=== PATIENT | female | born 1935 | race Caucasian/White ===

== ENCOUNTER 2016-12-13 20:47 | Inpatient (IN) | payer OTHER ==
[~2016-12-13] VITALS: Ht 167.6 cm; Wt 63.5 kg
[~2016-12-13 20:47] MED LIST: GLUXR500 PO; LISI10TA5 PO; VITD2000 PO
[2016-12-13 20:52] VITALS: BP_SYST 142
[2016-12-13 21:33] LABS: BASOPHILS % (AUTO) 0.5 % (0.0-2.0); EOSINOPHILS # (AUTO) 0.1 K/uL (0.0-0.4); EOSINOPHILS % (AUTO) 1.5 % (0.0-4.0); HEMATOCRIT 38.1 % (36-48); HEMOGLOBIN 12.8 g/dL (12.0-16.0); LYMPHOCYTES # (AUTO) 1.6 K/uL (1.0-5.5); LYMPHOCYTES % (AUTO) 17.3 % (20.5-51.5); MEAN CORPUSCULAR HEMOGLOBIN 32 pg (27-31); MEAN CORPUSCULAR HGB CONC 34 % (32-36); MEAN CORPUSCULAR VOLUME 94 fL (79.0-98.0); MONOCYTES # (AUTO) 0.7 K/uL (0.0-1.0); MONOCYTES % (AUTO) 7.3 % (1.7-9.3); NEUTROPHILS # (AUTO) 6.6 K/uL (1.8-7.7); NEUTROPHILS % (AUTO) 73.4 % (40.0-70.0); PLATELET COUNT (AUTO) 198 K/uL (130-430); RED BLOOD CELL COUNT(AUTO) 4.07 MIL/uL (4.2-6.2); RED CELL DISTRIBUTION WIDTH 13.7 % (9.0-15.0)
[2016-12-13 21:39] LABS: ANION GAP 4 (5-15); CALCIUM 8.9 mg/dL (8.4-11.0); CHLORIDE 104 mmol/L (98-107); CREATININE 1.44 mg/dL (0.55-1.30); GLUCOSE 134 mg/dL (70-99); POTASSIUM 3.9 mmol/L (3.5-5.1); SODIUM SERUM 136 mmol/L (136-145); UREA NITROGEN, BLOOD 34 mg/dL (8-21)
[2016-12-13 21:41] LABS: INR 1.1 (0.8-1.2); PROTHROMBIN TIME 12.3 SECS (9.5-12.5)
[2016-12-13 21:44] LABS: ALANINE AMINOTRANSFERASE 33 U/L (12-78); ASPARTATE AMINOTRANSFERASE 26 U/L (10-37); TOTAL BILIRUBIN 0.4 mg/dL (0.0-1.0); TOTAL PROTEIN, SERUM 7.9 g/dL (6.4-8.3)
[2016-12-13 22:12] LABS: BILIRUBIN,URINE NEGATIVE (NEGATIVE); BLOOD, URINE 2+ (NEGATIVE); CLARITY/URINE HAZY (CLEAR); COLOR,URINE YELLOW (YELLOW); GLUCOSE,URINE NEGATIVE (NEGATIVE); KETONES,URINE NEGATIVE (NEGATIVE); LEUKOCYTE ESTERASE ,URINE 2+ (NEGATIVE); NITRITE, URINE NEGATIVE (NEGATIVE); PROTEIN URINE 1+ (NEGATIVE); UROBILINOGEN,URINE 0.2 (0.2-1.0)
[2016-12-13 22:24] LABS: BACTERIA,URINE MODERATE /HPF (None Seen)
[2016-12-13 22:25] LABS: MUCUS,URINE None Seen /LPF (None Seen)
[2016-12-13] MEDS ORDERED: cefTRIAXone 1 GM IVPB PREMIX 50 ML IV ONE (22:45)
[2016-12-14] VITALS (7 sets, daily range): BP systolic 116–168
[2016-12-14] MEDS ORDERED: LISI10TA5 PO (00:33)
[2016-12-14] MEDS ORDERED: LEVO25TA58 PO (00:33)
[2016-12-14] MEDS ORDERED: FURO-150 PO (00:33)
[2016-12-14] MEDS ORDERED: ALEN10TA6 PO (00:33)
[2016-12-14] MEDS ORDERED: D5/0.45 NS 1,000 ML IV SCH (00:45)
[2016-12-14] MEDS ORDERED: INSULIN REGULAR, HUMAN 100 UNITS/ML, 10 ML VIAL (novoLIN R) SUBCUT PRN (01:00)
[2016-12-14] MEDS: ASPIRIN 81 MG TAB.CHEW PO SCH (09:03)
[2016-12-14] MEDS ORDERED: ALENDRONATE SODIUM 10 MG TABLET (FOSAMAX) PO SCH (11:15)
[2016-12-14] MEDS: 0.45% NACL 1,000 ML IV SCH (12:10)
[2016-12-14] MEDS: cefTRIAXone 1 GM IVPB PREMIX 50 ML IV SCH (22:10)
[2016-12-15] VITALS (8 sets, daily range): BP systolic 134–185
[2016-12-15] MEDS: cloNIDine HCL 0.1 MG TABLET PO PRN (00:38)
[2016-12-15] MEDS: LEVOTHYROXINE SODIUM 0.025 MG TABLET PO SCH (06:00)
[2016-12-15 07:17] LABS: ALANINE AMINOTRANSFERASE 29 U/L (12-78); ALBUMIN 2.5 g/dL (3.4-4.8); ASPARTATE AMINOTRANSFERASE 22 U/L (10-37); CALCIUM 8.1 mg/dL (8.4-11.0); CHLORIDE 107 mmol/L (98-107); GLUCOSE 90 mg/dL (70-99); POTASSIUM 4.1 mmol/L (3.5-5.1); SODIUM SERUM 136 mmol/L (136-145); TOTAL BILIRUBIN 0.3 mg/dL (0.0-1.0); TOTAL PROTEIN, SERUM 6.9 g/dL (6.4-8.3); UREA NITROGEN, BLOOD 25 mg/dL (8-21)
[2016-12-15 07:19] LABS: ANION GAP < 3 (5-15)
[2016-12-15 07:41] LABS: BASOPHILS # (AUTO) 0.1 K/uL (0.0-0.2); EOSINOPHILS # (AUTO) 0.2 K/uL (0.0-0.4); EOSINOPHILS % (AUTO) 3.1 % (0.0-4.0); HEMATOCRIT 36.4 % (36-48); HEMOGLOBIN 12.2 g/dL (12.0-16.0); LYMPHOCYTES # (AUTO) 1.7 K/uL (1.0-5.5); LYMPHOCYTES % (AUTO) 22.2 % (20.5-51.5); MEAN CORPUSCULAR HEMOGLOBIN 32 pg (27-31); MEAN CORPUSCULAR HGB CONC 34 % (32-36); MEAN CORPUSCULAR VOLUME 95 fL (79.0-98.0); MONOCYTES # (AUTO) 0.7 K/uL (0.0-1.0); MONOCYTES % (AUTO) 8.7 % (1.7-9.3); NEUTROPHILS # (AUTO) 4.8 K/uL (1.8-7.7); PLATELET COUNT (AUTO) 152 K/uL (130-430); RED BLOOD CELL COUNT(AUTO) 3.84 MIL/uL (4.2-6.2); RED CELL DISTRIBUTION WIDTH 13.7 % (9.0-15.0)
[2016-12-15] MEDS: FUROSEMIDE 20 MG TABLET PO SCH (08:08)
[2016-12-15] MEDS: LISINOPRIL 10 MG TABLET (PRINIVIL) PO SCH (08:08)
[2016-12-15] MEDS: ASPIRIN 81 MG TAB.CHEW PO SCH (08:08)
[2016-12-15] MEDS: 0.45% NACL 1,000 ML IV SCH (08:09)
[2016-12-15 08:12] LABS: WHITE BLOOD COUNT (AUTO) 7.5 K/uL (4.8-10.8)
[2016-12-15] MEDS ORDERED: IPRATROPIUM BROM 0.5 MG/2.5 ML VIAL.NEB (ATROVENT) INH PRN (10:15)
[2016-12-15] MEDS ORDERED: ALBUTEROL SULFATE 0.083% 2.5 MG/3 ML VIAL.NEB INH PRN (10:15)
[2016-12-15 10:55] LABS: BLOOD GAS BASE EXCESS -0.3 mmol/L (-3.0-3.0); BLOOD GAS COHb% 1.1 % (0.5-1.5); BLOOD GAS HHB 5.5 % (0.0-6.0); BLOOD GAS PH 7.384 (7.350-7.450); BLOOD O2Hb% 93.1 % (94.0-97.0)
[2016-12-15] MEDS: ALBUTEROL SULFATE 0.083% 2.5 MG/3 ML VIAL.NEB INH SCH ×4 (12:03→23:00)
[2016-12-15] MEDS: IPRATROPIUM BROM 0.5 MG/2.5 ML VIAL.NEB (ATROVENT) INH SCH ×4 (12:03→23:00)
[2016-12-15] MEDS: cefTRIAXone 1 GM IVPB PREMIX 50 ML IV SCH (22:07)
[2016-12-16] VITALS: BP_SYST 135
[2016-12-16] MEDS: IPRATROPIUM BROM 0.5 MG/2.5 ML VIAL.NEB (ATROVENT) INH SCH ×6 (03:00→23:00)
[2016-12-16] MEDS: ALBUTEROL SULFATE 0.083% 2.5 MG/3 ML VIAL.NEB INH SCH ×6 (03:00→23:00)
[2016-12-16 03:50] VITALS: BP_SYST 142
[2016-12-16] MEDS: LEVOTHYROXINE SODIUM 0.025 MG TABLET PO SCH (06:17)
[2016-12-16 08:13] VITALS: BP_SYST 158
[2016-12-16] MEDS: ASPIRIN 81 MG TAB.CHEW PO SCH (08:22)
[2016-12-16] MEDS: LISINOPRIL 10 MG TABLET (PRINIVIL) PO SCH (08:22)
[2016-12-16] MEDS: FUROSEMIDE 20 MG TABLET PO SCH (08:22)
[2016-12-16 12:35] VITALS: BP_SYST 119
[2016-12-16 15:46] VITALS: BP_SYST 139
[2016-12-16 19:55] VITALS: BP_SYST 139
[2016-12-16] MEDS: cefTRIAXone 1 GM IVPB PREMIX 50 ML IV SCH (21:04)
[2016-12-17 00:55] VITALS: BP_SYST 150
[2016-12-17] MEDS: IPRATROPIUM BROM 0.5 MG/2.5 ML VIAL.NEB (ATROVENT) INH SCH ×5 (03:00→20:38)
[2016-12-17] MEDS: ALBUTEROL SULFATE 0.083% 2.5 MG/3 ML VIAL.NEB INH SCH ×5 (03:00→20:38)
[2016-12-17 03:50] VITALS: BP_SYST 150
[2016-12-17] MEDS: LEVOTHYROXINE SODIUM 0.025 MG TABLET PO SCH (06:21)
[2016-12-17 08:16] VITALS: BP_SYST 139
[2016-12-17] MEDS: ASPIRIN 81 MG TAB.CHEW PO SCH (08:45)
[2016-12-17] MEDS: LISINOPRIL 10 MG TABLET (PRINIVIL) PO SCH (08:45)
[2016-12-17] MEDS: FUROSEMIDE 20 MG TABLET PO SCH (08:45)
[2016-12-17 12:05] VITALS: BP_SYST 147
[2016-12-17 16:21] VITALS: BP_SYST 136
[2016-12-17 20:00] VITALS: BP_SYST 148
[2016-12-17] MEDS: cefTRIAXone 1 GM IVPB PREMIX 50 ML IV SCH (20:46)
[2016-12-17] MEDS: cloNIDine HCL 0.1 MG TABLET PO PRN (23:09)
[2016-12-18 00:14] VITALS: BP_SYST 167
[2016-12-18] MEDS: cloNIDine HCL 0.1 MG TABLET PO PRN ×2 (05:23→17:53)
[2016-12-18] MEDS: LEVOTHYROXINE SODIUM 0.025 MG TABLET PO SCH (06:03)
[2016-12-18 06:04] VITALS: BP_SYST 154
[2016-12-18] MEDS: IPRATROPIUM BROM 0.5 MG/2.5 ML VIAL.NEB (ATROVENT) INH SCH ×3 (07:36→18:13)
[2016-12-18] MEDS: ALBUTEROL SULFATE 0.083% 2.5 MG/3 ML VIAL.NEB INH SCH ×3 (07:36→18:13)
[2016-12-18 08:37] VITALS: BP_SYST 140
[2016-12-18] MEDS: LISINOPRIL 10 MG TABLET (PRINIVIL) PO SCH (10:00)
[2016-12-18] MEDS: ASPIRIN 81 MG TAB.CHEW PO SCH (10:00)
[2016-12-18] MEDS: FUROSEMIDE 20 MG TABLET PO SCH (10:01)
[2016-12-18 12:15] VITALS: BP_SYST 137
[2016-12-18 16:38] VITALS: BP_SYST 186
[2016-12-18 20:07] VITALS: BP_SYST 125
== END 2016-12-18 21:05 | DRG 64 ==
LOC: SED 20:47 → STU 12-14 00:49 → MERGE 12-14 00:49 → STU 12-14 01:03 → SMU 12-18 17:21
DX: I63.9 Cerebral infarction, unspecified (principal); E43 Unspecified severe protein-calorie malnutrition; G81.91 Hemiplegia, unspecified affecting right dominant side; N39.0 Urinary tract infection, site not specified; J96.10 Chronic respiratory failure, unspecified whether with hypoxia or hypercapnia; I10 Essential (primary) hypertension; E03.9 Hypothyroidism, unspecified; M81.0 Age-related osteoporosis without current pathological fracture; J44.9 Chronic obstructive pulmonary disease, unspecified; F03.90 Unspecified dementia, unspecified severity, without behavioral disturbance, psychotic disturbance, mood disturbance, and anxiety; G93.89 Other specified disorders of brain; R22.2 Localized swelling, mass and lump, trunk; G31.89 Other specified degenerative diseases of nervous system; Z96.642 Presence of left artificial hip joint; Z99.81 Dependence on supplemental oxygen; Z79.899 Other long term (current) drug therapy; Z87.891 Personal history of nicotine dependence; Z68.22 Body mass index [BMI] 22.0-22.9, adult
CPT/HCPCS: 36415; 36600; 70450-TC; 71010; 71250-TC; 72125-TC; 80053; 81000-TC; 82803-TC; 82962; 83605; 83880; 84484; 85025; 85610-TC; 85730-TC; 87040-TC; 87086; 87186-TC; 93005; 93880; 94640; 94760; 96365; 97110-GP; 97116-GP; 97530-GP; 99285; J0696; J1815